=== PATIENT | male | born 1965 | race Caucasian/White ===

== ENCOUNTER 2023-09-02 08:42 | Outpatient (AMB) | payer OTHER, SELFPAY ==
[2023-09-02 08:45] VITALS: BP 120/84; PULSE 83; O2SAT 100; BMI 28.2
--- NOTE | 2023-09-02 08:45 | A.OFFPC_ITS ---
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 Intake Note: pt is here to est care and wants a PE pt's last colon screen was 2 years ago at [facility] and goes every 5 years Allergies No Known Allergies Allergy (Verified 12/18/23 10:13) Medication List - Last Reconciled 09/02/23 by Marcela Luz MD allopurinol 300 mg PO DAILY fenofibrate nanocrystallized 145 mg PO DAILY omeprazole 20 mg PO DAILY Tobacco use date assessed: 09/02/23 Dental Screening Dental Screen Date: 09/02/23 Did you have a dental visit in the last 12 months?: No Did you have a dental problem in the last 6 months where you did not have access to dental care?: No Was dental information given to patient?: Patient has dentist 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 He has been feeling well with no complaints at present time. Patient states that his last colonoscopy was done 2 years ago at [facility] and is supposed to go every 5 years. Had removal of adenomatous colon polyp in 2020. Has been noticing bright red blood mixed in with his stool over the last several days. [facility] Medical History Bleeding hemorrhoids History of adenomatous polyp of colon Chronic heartburn Celiac disease Hypertriglyceridemia Gout Surgical History History of hemorrhoidectomy (~12/05/23) Hx of colonoscopy History of eye surgery (~1977) Family History Father Diabetes mellitus Brother Liver cirrhosis Alcoholism Brother CAD in [place] artery Social History Housing: House Patient Tobacco Use Status: Former Tobacco user Quit Date: 10 years ago Tobacco use type: Cigarette Cigarette Packs Per Day: 1 e-Cigarette/Vaping Use: Never Used Second Hand Smoke Exposure: Yes service: Yes Current occupational status: employed Current occupation: [employer] Current occupational exposures/hazards: Yes Cognitive needs: No Hearing needs: No Vision needs: No Questionnaire PHQ-9 Over the last 2 weeks, how often have you been bothered by any of the following problems? 1. Little interest or pleasure in doing things: not at all 2. Feeling down, depressed, or hopeless: not at all 3. Trouble falling or staying asleep, or sleeping too much: not at all 4. Feeling tired or having little energy: not at all 5. Poor appetite or overeating: not at all 6. Feeling bad about yourself - or that you are a failure or have let yourself or your family down: not at all 7. Trouble concentrating on things, such as reading the newspaper or watching television: not at all 8. Moving or speaking so slowly that other people could have noticed. Or the opposite - being so fidgety or restless that you have been moving around a lot more than usual: not at all 9. Thoughts that you would be better off or of hurting yourself in some way: not at all Total score: 0 Depression Screening Interpretation: Negative Depression Screening Done: Yes 24708 - PHQ-9 Billing: Yes Source: Developed by Drs. Benjamin Parada, Slime Zayas, Brendan Lazo and colleagues, with an educational cande from [employer]. Thrive Questionnaire Date Thrive assessed: 09/02/23 I am a: Patient What is your living situation today?: I have a steady place to live Within the past 12 months, did the food you bought not last and you didn't have the money to get more?: Never true Within the past 12 months, did you worry whether your food would run out before you got money to buy more?: Never true Do you have trouble paying for medicines?: No Do you have trouble getting transportation to medical appointments?: No Do you have trouble paying your heating and electricity bill?: No Do you have trouble taking care of your child, family member or friend?: No Do you have trouble with day-to-day activities such as bathing, preparing meals, shopping, managing finances, etc.?: No Are you currently unemployed and looking for a job?: No Are you interested in more education?: No AUDIT C Alcohol Use Questionnaire (AUDIT-C) 1. How often do you have a drink containing alcohol?: 2-4 times a month (rum) 2. How many drinks containing alcohol do you have on a typical day when you are drinking?: 3 or 4 3. How often do you have six or more drinks on one occasion?: Monthly Total Score: 5 LUC-7 AMB Questionnaire LUC-7 Date LUC - 7 assessed: 09/02/23 Feeling nervous, anxious, or on edge: 0 = Not at all Not being able to stop or control worryin = Not at all Worrying too much about different things: 0 = Not at all Trouble relaxin = Not at all Being so restless that it is hard to sit still: 0 = Not at all Becoming easily annoyed or irritable: 0 = Not at all Feeling afraid as if something awful might happen: 0 = Not at all Total LUC-7 score (0-4 normal; 5-9 mild; 10-14 moderate; 15-21 severe): 0 Source: Developed by Drs. Benjamin Parada, Slime Zayas, Brendan Lzao and colleagues, with an educational cande from [employer]. LUC-7 Assessment Billing LUC-7 Assessment Tool: LUC-7 Assessment 06100 Review of Systems Const Denies fatigue Eyes Denies change in vision ENT Reports nasal congestion and Reports post nasal drip Card Reports no additional complaints Resp Denies chest congestion, Reports cough and Denies wheezing GI Denies abdominal pain, Reports hematochezia (due to hemorrhoids), Denies change in bowel habits, Denies heartburn (Controlled with famotidine) and Denies nausea Reports no additional complaints Musc Reports no additional complaints Skin/Breast Reports dry skin and Denies rash Neuro Reports no additional complaints Psych Reports no additional complaints Endo Denies fatigue and Reports polyuria Leon/Lymph Denies easy bleeding and Denies easy bruising Aller/Immun Denies wheezing Physical exam (Primary Care) Vital Signs: Last Vital Signs Pulse 83 09/02/23 08:45 BP 120/84 09/02/23 08:45 Pulse Ox 100 09/02/23 08:45 Oxygen Delivery Method Room Air 09/02/23 08:45 BMI result Body Mass Index 28.2 Tobacco/Smoking Status: Tobacco use Status Tobacco use date assessed 09/02/23 09/02/23 08:58 Patient Tobacco Use Status Former Tobacco user 09/02/23 08:58 Tobacco use type Cigarette 09/02/23 08:58 e-Cigarette/Vaping Use Never Used 09/02/23 08:58 PHQ-9: PHQ-9 Score PHQ-9: Total score 0 09/02/23 09:36 Depression Screening Interpretation: Negative Thrive Assessment: Date of Thrive Assessment Date Thrive assessed 09/02/23 09/02/23 09:04 Const General: no acute distress and alert Orientation/consciousness: patient oriented x3 HENMT Head: Yes normocephalic Ears: external ears normal, TM's normal bilaterally and EAC's normal General nose exam: Normal external nose present and No nasal discharge present Face and sinus: Yes face symmetric Mouth: Normal oral and palatal mucosa present, oropharynx normal and moist mucous membranes Eyes General: appearance normal, both eyes and all related structures Eyelids: Yes eyelids normal Conjunctivae: conjunctivae normal Sclerae: sclerae normal Pupils: Equal, round and reactive pupils present EOM: EOMs intact bilaterally Neck Neck: Yes full ROM, Yes no lymphadenopathy and Yes supple Thyroid: Thyroid normal Resp Effort & Inspection: normal respiratory effort and able to speak in complete sentences Auscultation: clear to auscultation bilaterally Cardio Rate: regular rate Rhythm: regular rhythm Heart sounds: S1 normal heart sound present and S2 normal heart sound present GI Palpation (GI): Soft to palpation, nontender, no guarding and no masses Auscultation: normal bowel sounds Rectal Exam - Male: Yes hemorrhoids (External hemorrhoids noted on left) General: Yes no CVA tenderness Male General Exam: No hernia Scrotum: no inguinal hernias Testes: no testicular mass Back/Spine/Pelvis Back: no CVA tenderness and No back tenderness Skin General skin exam: no rashes or lesions noted Neuro General: patient oriented x3, gait normal, moves all extremities, Normal light touch and pain sensation, no focal motor deficits and CN's II-XI intact jd aterally Cranial nerves: Yes Equal, round and reactive pupils present Cognition (Neuro): normal cognition Gait exam (Neuro): Normal gait present Motor exam (neuro): 5/5 motor strength present throughout Extrem General: Yes normal to inspection, Yes full ROM, Yes no joint enlargement, Yes no pedal edema and Yes normal gait Psych Appearance: grossly normal and well kempt Mental Status: mental status grossly normal Speech and movement: Normal speech and movement present Affect: normal affect Office Procedures Flu Questionnaire Does the patient have a severe egg allergy?: No Does the patient have severe life threatening allergies?: No Does the patient have a fever or illness today?: No Has the patient ever had Guillain-[place] Syndrome?: No Has the patient ever had any past reaction to a flu shot?: No Immunizations flu vacc [id number] 6mos up(PF) 60 mcg(15 mcgx4)/0.5 mL IM syringe Performing Provider: Marcela Luz MD Performing Location: [facility] Administered by: Henny Saenz CMA on 09/02/23 09:47 Dose Route Admin Location Dispensed Lot Number Expiration Date 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 Recommended dental visit every 6 months and regular eye exams, at least every 2 years. Take adequate calcium in diet and vitamin-D 3 at 2000 IU per cap once a day, in addition to weight-bearing exercises to help maintain good muscle tone and weight control. Instructed to do self-testicular exam to check for any mass. Flu vaccine given today, up-to-date with Tdap, does not want to get a COVID booster (2) Chronic heartburn: Code(s): R12 - Heartburn Plan: Currently on famotidine 40 mg daily, advised avoidance of triggers for heartburn (3) Celiac disease: Code(s): K90.0 - Celiac disease Plan: Patient advised to follow a gluten free diet (4) Hypertriglyceridemia: Code(s): E78.1 - Pure hyperglyceridemia Plan: Fasting lipid panel ordered today currently on fenofibrate 145 mg (5) Gout: Comment: in right big toe Code(s): M10.9 - Gout, unspecified Plan: Ordered uric acid level, refill sent for allopurinol 300 mg taken once a day, recommended adherence to a low purine diet, cut back on his alcohol intake (6) Prostate cancer screening: Code(s): Z12.5 - Encounter for screening for malignant neoplasm of prostate Plan: Ordered total PSA (7) Bleeding hemorrhoids: Code(s): K64.9 - Unspecified hemorrhoids Plan: General surgery consult ordered Orders: Orders Comprehensive [place]. Panel Fast 09/02/23 Z86.010 - Personal history of colonic polyps, R12 - Heartburn, K90.0 - Celiac disease, E78.1 - Pure hyperglyceridemia, M10.9 - Gout, unspecified, Z00.01 - Encounter for general adult medical examination with abnormal findings, Z12.5 - Encounter for screening for malignant neoplasm of prostate Vitamin D 25-OH Total 09/02/23 Z86.010 - Personal history of colonic polyps, R12 - Heartburn, K90.0 - Celiac disease, E78.1 - Pure hyperglyceridemia, M10.9 - Gout, unspecified, Z00.01 - Encounter for general adult medical examination with abnormal findings, Z12.5 - Encounter for screening for malignant neoplasm of prostate PSA,Total (Free>4and<10) 09/02/23 Z86.010 - Personal history of colonic polyps, R12 - Heartburn, K90.0 - Celiac disease, E78.1 - Pure hyperglyceridemia, M10.9 - Gout, unspecified, Z00.01 - Encounter for general adult medical examination with abnormal findings, Z12.5 - Encounter for screening for malignant neoplasm of prostate Influenza 9005-1811 Immunization 09/02/23 Z23 - Encounter for immunization, Z86.010 - Personal history of colonic polyps, R12 - Heartburn, K90.0 - Celiac disease, E78.1 - Pure hyperglyceridemia, M10.9 - Gout, unspecified, Z00.01 - Encounter for general adult medical examination with abnormal findings, Z12.5 - Encounter for screening for malignant neoplasm of prostate Lipid Panel 09/02/23 Z86.010 - Personal history of colonic polyps, R12 - Heartburn, K90.0 - Celiac disease, E78.1 - Pure hyperglyceridemia, M10.9 - Gout, unspecified, Z00.01 - Encounter for general adult medical examination with abnormal findings, Z12.5 - Encounter for screening for malignant neoplasm of prostate Complete Blood Count Auto Diff 09/02/23 Z86.010 - Personal history of colonic polyps, R12 - Heartburn, K90.0 - Celiac disease, E78.1 - Pure hyperglyceridemia, M10.9 - Gout, unspecified, Z00.01 - Encounter for general adult medical examination with abnormal findings, Z12.5 - Encounter for screening for malignant neoplasm of prostate Uric Acid 09/02/23 Z86.010 - Personal history of colonic polyps, R12 - Heartburn, K90.0 - Celiac disease, E78.1 - Pure hyperglyceridemia, M10.9 - Gout, unspecified, Z00.01 - Encounter for general adult medical examination with abnormal findings, Z12.5 - Encounter for screening for malignant neoplasm of prostate Referrals General Surgery Referral K64.9 - Unspecified hemorrhoids Medications: New cetirizine 10 mg PO BEDTIME PRN 30 tabs 3RF allergy symptoms fluticasone propionate 50 mcg/actuation (Allergy Relief (fluticasone)) administer into each nostril 1 spray intranasal BID PRN 16 grams 1RF allergy symptoms famotidine 40 mg PO DAILY 30 tabs 5RF allopurinol 300 mg PO DAILY 30 tabs 5RF Coding Level of Care Code New Pt Prev Care 40-64y(37213) Diagnoses Annual visit for general adult medical examination with abnormal findings Z00.01 Chronic heartburn R12 Celiac disease K90.0 Hypertriglyceridemia E78.1 Gout M10.9 Prostate cancer screening Z12.5 Bleeding hemorrhoids K64.9 Additional Codes LUC-7 Assessment Billing - LUC-7 Assessment Tool: LUC-7 Assessment 46675 ([id number])
== END 2023-09-02 09:55 | disposition home or self-care (01) ==
PROVIDERS: PCP Internal Medicine; Visit Provider Internal Medicine
DX: Z00.00 Encounter for general adult medical examination without abnormal findings (principal); R12 Heartburn; K90.0 Celiac disease; E78.1 Pure hyperglyceridemia; M10.9 Gout, unspecified; Z12.5 Encounter for screening for malignant neoplasm of prostate; K64.9 Unspecified hemorrhoids
CPT/HCPCS: 90471; 90686; 99386

== ENCOUNTER 2023-09-02 09:53 | Outpatient (REF) | payer OTHER, SELFPAY ==
[2023-09-02 13:28] LABS: MANUAL DIFF FLAG NO
[2023-09-02 13:36] LABS: Basophils Percent Auto 0.5 % (0-2); Eosinophils Absolute Auto 0.1 X10*3/uL (0.0-0.4); Hematocrit 40.4 % (42.0-52.0); Hemoglobin 13.7 g/dl (14.0-18.0); Imm Gran Abs Auto 0.02 X10*3/uL (0.00-0.03); Imm Gran Pct Auto 0.3 % (0.0-0.4); Lymphocytes Percent Auto 13.2 % (20-40); Mean Corpuscular HGB Conc 33.9 g/dl (31.0-36.0); Mean Corpuscular Hemoglobin 31.1 pg (27.0-33.0); Mean Corpuscular Volume 91.6 fL (80.0-98.0); Mean Platelet Volume 10.2 fL (9.4-12.4); Monocytes Absolute Auto 0.6 X10*3/uL (0.1-1.2); Monocytes Percent Auto 7.4 % (2-11); Neutrophils Absolute Auto 6.1 x10*3/uL (2.0-8.3); Neutrophils Percent Auto 77.6 % (45-73); Platelet Count 242 X10*3/uL (160-400); Red Blood Count 4.41 X10*6/uL (4.60-5.80); Red Cell Distribution Width 12.3 % (11.0-16.0); White Blood Count 7.9 X10*3/uL (4.8-10.8)
[2023-09-02 13:58] LABS: Alanine Aminotransferase 23 U/L (0-40); Albumin Level 4.6 g/dL (3.5-5.0); Alkaline Phosphatase 55 U/L (39-117); Anion Gap 14 (12-20); Aspartate Amino Transferase 24 U/L (5-37); Bilirubin Total 0.6 mg/dL (0.0-1.0); Blood Urea Nitrogen 16 mg/dL (9-16); Calcium 10.2 mg/dL (8.4-10.2); Carbon Dioxide 25 mmol/L (22-29); Chloride 106 mmol/L (96-108); Cholesterol 170 mg/dL (<200); Estimated Glomerular Filt Rate 59; Glucose Fasting 104 mg/dL (60-99); HDL Cholesterol 33 mg/dL (>40); LDL Cholesterol Calculated 118 mg/dL (<100); Potassium 4.2 mmol/L (3.3-5.1); Sodium 141 mmol/L (135-145); Total Protein 7.3 g/dL (6.5-8.0); Triglycerides 95 mg/dL (<150); Uric Acid 4.3 mg/dL (3.4-7.0)
[2023-09-02 14:10] LABS: PSA,Total (Free>4and<10) 0.98 ng/mL (0.00-4.00)
[2023-09-02 14:14] LABS: Vitamin D 25-OH Total 30.3 ng/mL (>30)
== END 2023-09-02 09:54 | disposition home or self-care (01) ==
LOC: HO.HMGCLDS 09:53
PROVIDERS: PCP Internal Medicine; Visit Provider Internal Medicine
DX: Z00.01 Encounter for general adult medical examination with abnormal findings (principal); Z12.5 Encounter for screening for malignant neoplasm of prostate; M10.9 Gout, unspecified; R12 Heartburn; K90.0 Celiac disease; E78.1 Pure hyperglyceridemia; Z86.010 Personal history of colon polyps
CPT/HCPCS: 36415; 80053; 80061; 82306; 84153; 84550; 85025

== ENCOUNTER 2023-09-15 15:00 | Outpatient (AMB) | payer OTHER, SELFPAY ==
--- NOTE | 2023-09-15 15:02 | A.OFFVIS_ITS ---
Intake Vital Signs 09/15/23 15:12 Height 5 ft Weight 146 lb BMI 28.5 BP 133/76 Blood Pressure Location Rt brachial Position Sitting Pulse 84 Intake Visit Reasons: Unspecified hemorrhoids Intake Note: This patient presents for an assessment for unspecified hemorrhoids. Patient c/o; reports no rectal bleeding at this time, reports occasional constipation, reports regular bowel movements. 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 He says that for about 4-5 years now, he has been noticing frequent bleeding with bowel movements. He also says that hemorrhoids which swell up periodically. He says that this seems to have been worsening the past year. He says that these hemorrhoids have been bothering him more and he wants to proceed with hemorrhoidectomy. He has had a colonoscopy before and says he is up-to-date with this. [facility] Medical History (Updated 09/02/23 @ 09:50 by Marcela Luz MD) Bleeding hemorrhoids History of adenomatous polyp of colon Chronic heartburn Celiac disease Hypertriglyceridemia Gout Surgical History (Updated 09/15/23 @ 15:11 by EUGENIA Conroy) History of eye surgery (~1977) Family History (Updated 09/15/23 @ 15:11 by EUGENIA Conroy) Father Diabetes mellitus Brother Liver cirrhosis Alcoholism Brother CAD in [place] artery Social History Housing: House Patient Tobacco Use Status: Former Tobacco user Quit Date: quit 10 years ago Tobacco use type: Cigarette Cigarette Packs Per Day: 1 e-Cigarette/Vaping Use: Never Used Second Hand Smoke Exposure: Yes service: Yes Current occupational status: employed Current occupation: [employer] Current occupational exposures/hazards: Yes Cognitive needs: No Hearing needs: No Vision needs: No Review of Systems Const Denies chills and Denies fever(s) Card Denies chest pain, Denies dyspnea and Denies dyspnea on exertion Resp Denies cough, Denies dyspnea and Denies dyspnea on exertion GI Denies hematochezia and Denies change in bowel habits Denies hematuria and Denies difficulty urinating Musc Denies back pain and Denies limited range of motion Neuro Denies focal weakness and Denies convulsions Psych Denies depression and Denies mood swings Physical Exam Vital Signs: Last Vital Signs Pulse 84 09/15/23 15:12 BP 133/76 09/15/23 15:12 BMI result Body Mass Index 28.5 Const General: comfortable and no acute distress Orientation/consciousness: patient oriented x3 Neck Neck: Yes no lymphadenopathy Resp Auscultation: clear to auscultation bilaterally Cardio Rhythm: regular rhythm GI Other: Rectal exam shows large external hemorrhoid column on the left, anoscopy as described Palpation (GI): Soft to palpation, nontender and no guarding Neuro General: patient oriented x3 Office Procedures Anoscopy He was in cheryl-knife position. The anoscope was gently inserted. A full examination of the anal canal was done. He had a fairly large hemorrhoidal column, mix of internal and externalon the left. This seemed to bleed easily. There were no other lesions. There was no induration on digital exam. He had good sphincter tone. [id number] Assessment & Plan Assessment & Plan (1) Bleeding hemorrhoids: Code(s): K64.9 - Unspecified hemorrhoids Plan: I reviewed with him the technique of hemorrhoidectomy. I explained the risks including but not limited to bleeding, infections, postop pain, poor healing, as well as the benefits and alternatives. I reviewed with him what to expect postoperatively especially with regards to care. He says that the bleeding happens quite frequently and he wants to proceed with hemorrhoidectomy. Coding Level of Care Code New Pt Level 3 (96397) Diagnoses Bleeding hemorrhoids K64.9 CPT Codes Details - CPT: 29811-Pslhbtnt ([id number])
[2023-09-15 15:12] VITALS: BP 133/76; PULSE 84; BMI 28.5
== END 2023-09-15 15:27 | disposition home or self-care (01) ==
PROVIDERS: PCP Internal Medicine; Visit Provider Surgery
DX: K64.9 Unspecified hemorrhoids (principal)
CPT/HCPCS: 46600; 99203

== ENCOUNTER → 2023-09-15 15:00 | Outpatient (BNVA) | payer OTHER, SELFPAY | PROVIDERS: PCP Internal Medicine; Visit Provider Surgery | DX: K64.9 Unspecified hemorrhoids (principal) | CPT/HCPCS: 46600 ==

== ENCOUNTER 2023-12-05 06:13 | Day surgery (SDC) | payer OTHER, SELFPAY ==
[2023-12-03 08:49] VITALS: BMI 28.5
--- NOTE | 2023-12-04 10:41 | P.CONAN_ITS ---
Documented by User: Cynthia Petty NP 12/04/23 10:42 HPI - Anesthesia Eval Consult details Narrative: 58yo M for Exam under anesthesia,Hemorrhoidectomy PMFSH Active Problems Active Problems: All Active Problems (Updated 09/02/23 @ 09:50 by Marcela Luz MD) Bleeding hemorrhoids (Acute) History of adenomatous polyp of colon (Acute) Chronic heartburn (Acute) Celiac disease (Acute) Hypertriglyceridemia (Acute) Gout (Acute) Past Medical History Medical History Bleeding hemorrhoids History of adenomatous polyp of colon Chronic heartburn Celiac disease Hypertriglyceridemia Gout Family History Family History Father Diabetes mellitus Brother Liver cirrhosis Alcoholism Brother CAD in [place] artery Surgical History Surgical History Hx of colonoscopy History of eye surgery (~1977) Social History Social History Housing: House Patient Tobacco Use Status: Former Tobacco user Quit Date: 10 years ago Tobacco use type: Cigarette Cigarette Packs Per Day: 1 e-Cigarette/Vaping Use: Never Used Second Hand Smoke Exposure: Yes Use of substances other than those prescribed or required for medical reasons: Yes Substance Use Frequency: Occasionally Are you DNR?: No Advance Directives: No Advance Directives Information Provided: Yes service: Yes Current occupational status: employed Current occupation: [employer] Current occupational exposures/hazards: Yes Cognitive needs: No Hearing needs: No Vision needs: No Meds Allergies Allergy/AdvReac Type Severity Reaction Status Date / Time No Known Allergies Allergy Verified 12/05/23 06:39 Home Medications Medication Instructions Recorded Confirmed Last Taken Type fenofibrate nanocrystallized 145 145 mg PO DAILY 09/02/23 12/05/23 Unknown History mg tablet Exam Height,Weight and Vital Signs: Height 5 ft Weight 66.224 kg Pertinent Lab Results Pertinent Lab Results: Laboratory Tests 09/02/23 10:00 WBC 7.9 Hgb 13.7 L Hct 40.4 L Plt Count 242 Sodium 141 Potassium 4.2 Chloride 106 Carbon Dioxide 25 BUN 16 Creatinine 1.25 Assessment and Plan Assessment Anesthesia Assessment: Chart Reviewed Documented by User: Lilia Alvarado MD 12/05/23 07:33 PMFSH Past Medical History Medical History Bleeding hemorrhoids History of adenomatous polyp of colon Chronic heartburn Celiac disease Hypertriglyceridemia Gout Family History Family History Father Diabetes mellitus Brother Liver cirrhosis Alcoholism Brother CAD in [place] artery Family history of problems with anesthesia: No Surgical History Surgical History Hx of colonoscopy History of eye surgery (~1977) History of Problems with Anesthesia: No Social History Social History Housing: House Patient Tobacco Use Status: Former Tobacco user Quit Date: 10 years ago Tobacco use type: Cigarette Cigarette Packs Per Day: 1 e-Cigarette/Vaping Use: Never Used Second Hand Smoke Exposure: Yes Use of substances other than those prescribed or required for medical reasons: Yes Substance Use Frequency: Occasionally Are you DNR?: No Advance Directives: No Advance Directives Information Provided: Yes service: Yes Current occupational status: employed Current occupation: [employer] Current occupational exposures/hazards: Yes Cognitive needs: No Hearing needs: No Vision needs: No Meds Allergies Allergy/AdvReac Type Severity Reaction Status Date / Time No Known Allergies Allergy Verified 12/05/23 06:39 Home Medications Medication Instructions Recorded Confirmed Last Taken Type fenofibrate nanocrystallized 145 145 mg PO DAILY 09/02/23 12/05/23 Unknown History mg tablet Exam Airway Mallampati Class: II TM Dist: >3cm Neck ROM: Full Loose/Missing/Broken Teeth: Yes and Upper Heart: rrr Lungs: cta Assessment and Plan Final Anesthetic Review Family History of Problems with Anesthesia: No History of Problems with Anesthesia: No NPO: Yes ASA Class: II Final Preanesthetic Review: No Changes in Pt Med Stat, Meds/Allgs Chart Reviewed, Consent Obtained/Reviewed and Anes Risks/Benef Reviewed Patient Risk: Intermediate Procedure Risk: Intermediate Anesthetic Plan Anesthetic Plan: GA Disposition: Standard PACU
[2023-12-05 06:15] VITALS: BP 140/99; PULSE 76; RESP 16; TEMP 36.5; O2SAT 98; BMI 28.2
[2023-12-05] MEDS: Lactated Ringers 1,000 ML 100 ML IVCONT (06:40)
--- NOTE | 2023-12-05 07:19 | MHC.SHP ---
Pre-Procedural Eval Section A - 24 Hr Update-Section A only Date of Service: 12/05/23 Section B - Complete if H&P > 30 days Chief Complaint: Unspecified hemorrhoids Details of Present Illness: has had a long hx of bleeding hemorrhoids Relevant Social History: None Present Medications: see Short Stay Collaborative assessment Medical History: Significant History (gout, celiac ds, hyperlipidemia) History of Previous Operations: No relevant previous surgery Allergies: Allergies Allergy/AdvReac Type Severity Reaction Status Date / Time No Known Allergies Allergy Verified 12/05/23 06:39 Review of Systems Sugical H&P ROS: Negative: Constitution, Cardiovascular, Respiratory, Neurological, Psychiatric, Hem-Onc, Allergic/Immunologic, Gastrointestinal, Genitourinary, Musculoskeletal, Integumentary, Endocrine and Eyes/Ears/Nose/Throat Exam Surgical H&P Exam: Normal: HEENT, Normal: Heart, Normal: Lungs, Normal: Extremities, Normal: Abdomen, Normal: Skin and Normal: Neurological Exam Comment: mixed hemorrhoids left Plan Diagnosis/Plan: Unchanged I have reviewed the history and physical and performed a pertinent physical examination on my patient. No changes have occurred unless specified. Time Spent With Patient Time: Total time managing care of this patient today ____ minutes.
--- NOTE | 2023-12-05 08:24 | P.OP_ITS ---
Operative Note Operative Note Date of Service: 12/05/23 Narrative: Preop diagnosis: Bleeding hemorrhoids Postop diagnosis: Bleeding hemorrhoids, internal and external Procedure: Exam under anesthesia hemorrhoidectomy x2 columns Surgeon: Bradley Cowan Seismometer Operator: [place] Colón student The patient is a 58-year-old male who is here for hemorrhoidectomy. He has had chronic complaints of frequent bleeding with this hemorrhoids and wanted to proceed with hemorrhoidectomy. He understood the planned procedure as well as the risks, benefits, and alternatives. He was brought to the operating room. He was placed in prone cheryl-knife position under general anesthesia via endotracheal tube. The buttocks were retracted with wide tape laterally. The perianal area was prepped and draped in the usual sterile fashion. A surgical time-out was done. The patient received Cefotan 2 g IV preoperatively Examination of the anal orifice revealed a large external hemorrhoid on the left side. There was a smaller hemorrhoidal column on the right. I inserted the Fabian Stout retractor. I examined the anal canal circumferentially. The above hemorrhoidal columns were seen as a mix of internal external. There were no other lesions. There was no bleeding. I applied a Schafer grasper at the hemorrhoidal column on the left to retract this out of the field. I made a figure of 8 stitch at its pedicle with a chromic 3-0. I made an incision around this hemorrhoidal column through the perianal skin using blade 15. I excised this hemorrhoidal column above the plane of the sphincters with scissors this incision. I closed this incision with a running chromic 3-0 stitch. Additional hemostatic sutures were placed . The same procedure was duplicated on the hemorrhoidal column the right side. The hemorrhoidal column was retracted with a Schafer grasper. I made a f [id number] stitch as the pedicle. I made an incision around this and excised this above the plane of sphincters. I closed this incision with a running chromic 3-0 stitch. Once hemostasis was confirmed, I infiltrated the perianal area with Marcaine 0.5% for postop analgesia. The procedure was then completed. The patient tolerated procedure well. There were no immediate complications. I nitial and final counts of sponges and instruments were correct. Estimated blood loss about 20 cc. The patient was extubated without difficulty and transferred to the recovery room with stable vital signs.
[2023-12-05 08:40] VITALS: BP 119/67; PULSE 75; RESP 16; TEMP 36.2; O2SAT 100
[2023-12-05 08:45] VITALS: BP 157/84; PULSE 83; RESP 16; O2SAT 100
[2023-12-05 08:50] VITALS: BP 155/80; PULSE 79; RESP 18; O2SAT 100
[2023-12-05 08:55] VITALS: BP 151/88; PULSE 79; RESP 20; TEMP 36.2; O2SAT 98
[2023-12-05] MEDS: oxyCODONE HCl Immed Release 5 MG TABLET PO (08:55)
[2023-12-05 09:10] VITALS: BP 160/97; PULSE 79; RESP 16; TEMP 36.2; O2SAT 98
== END 2023-12-05 09:46 | disposition home or self-care (01) ==
PROVIDERS: PCP Internal Medicine; Visit Provider Surgery
PROC: (CPT 46260; principal; 2023-12-05 07:30)
DX: K64.8 Other hemorrhoids (principal); K64.4 Residual hemorrhoidal skin tags; M10.071 Idiopathic gout, right ankle and foot; E78.1 Pure hyperglyceridemia; R12 Heartburn; Z79.899 Other long term (current) drug therapy; Z86.010 Personal history of colon polyps; K90.0 Celiac disease; Z87.891 Personal history of nicotine dependence
CPT/HCPCS: 46260; 88304; J1100; J1170; J2250; J2405; J2704; J2795; J3010

== ENCOUNTER → 2023-12-05 06:13 | Outpatient (BNV) | payer OTHER, SELFPAY | PROVIDERS: PCP Internal Medicine; Visit Provider Surgery | DX: K64.8 Other hemorrhoids (principal) | CPT/HCPCS: 46260 ==

== ENCOUNTER 2023-12-18 10:08 | Outpatient (AMB) | payer OTHER, SELFPAY ==
--- NOTE | 2023-12-18 10:08 | A.OFFVIS_ITS ---
Intake Intake Visit Reasons: S/P hemorrhoidectomy Intake Note: This patient presents for a post-op assessment status post hemorrhoidectomy. Pt c/o; reports no complaints at this time. Orthopedic Tech Required: No Accompanied by: Spouse Allergies No Known Allergies Allergy (Verified 12/18/23 10:13) [facility] Medical History Bleeding hemorrhoids History of adenomatous polyp of colon Chronic heartburn Celiac disease Hypertriglyceridemia Gout Surgical History (Updated 12/16/23 @ 10:39 by Marycruz Zarate [facility]) History of hemorrhoidectomy (~12/05/23) Hx of colonoscopy History of eye surgery (~1977) Family History Father Diabetes mellitus Brother Liver cirrhosis Alcoholism Brother CAD in [place] artery Social History Housing: House Patient Tobacco Use Status: Former Tobacco user Quit Date: 10 years ago Tobacco use type: Cigarette Cigarette Packs Per Day: 1 e-Cigarette/Vaping Use: Never Used Second Hand Smoke Exposure: Yes service: Yes Current occupational status: employed Current occupation: [employer] Current occupational exposures/hazards: Yes Cognitive needs: No Hearing needs: No Vision needs: No Assessment & Plan Assessment & Plan (1) Bleeding hemorrhoids: Code(s): K64.9 - Unspecified hemorrhoids Plan: Status post hemorrhoidectomy. He is doing well postoperatively. His incisions are healing well His path report shows a hemorrhoidal tissue with a minute area of condyloma acuminatum on the right side I explained to him the benign nature of this pathology I advised him to call the office if he has any concerns down the line or if he wants to be re-evaluated. Coding Level of Care Code Global (88564) Diagnoses Bleeding hemorrhoids K64.9
== END 2023-12-18 10:19 | disposition home or self-care (01) ==
PROVIDERS: PCP Internal Medicine; Visit Provider Surgery
DX: K64.9 Unspecified hemorrhoids (principal)
CPT/HCPCS: 99024

== ENCOUNTER → 2023-12-18 10:08 | Outpatient (BNVA) | payer OTHER, SELFPAY | PROVIDERS: PCP Internal Medicine; Visit Provider Surgery ==

== ENCOUNTER 2024-03-19 06:41 | Outpatient (REF) | payer OTHER, SELFPAY ==
[2024-03-19 10:26] LABS: MANUAL DIFF FLAG NO
[2024-03-19 10:36] LABS: Basophils Absolute Auto 0.1 X10*3/uL (0.0-0.2); Basophils Percent Auto 0.8 % (0-2); Eosinophils Absolute Auto 0.1 X10*3/uL (0.0-0.4); Imm Gran Abs Auto 0.01 X10*3/uL (0.00-0.03); Imm Gran Pct Auto 0.2 % (0.0-0.4); Lymphocytes Absolute Auto 1.1 X10*3/uL (1.2-4.9); Lymphocytes Percent Auto 17.1 % (20-40); Mean Corpuscular HGB Conc 34.9 g/dl (31.0-36.0); Mean Corpuscular Hemoglobin 32.7 pg (27.0-33.0); Mean Corpuscular Volume 93.7 fL (80.0-98.0); Mean Platelet Volume 10.6 fL (9.4-12.4); Monocytes Absolute Auto 0.5 X10*3/uL (0.1-1.2); Monocytes Percent Auto 8.2 % (2-11); Neutrophils Absolute Auto 4.5 x10*3/uL (2.0-8.3); Neutrophils Percent Auto 72.7 % (45-73); Platelet Count 189 X10*3/uL (160-400); Red Blood Count 4.59 X10*6/uL (4.60-5.80); Red Cell Distribution Width 12.9 % (11.0-16.0); White Blood Count 6.2 X10*3/uL (4.8-10.8)
[2024-03-19 11:23] LABS: Alanine Aminotransferase 25 U/L (0-40); Anion Gap 13 (12-20); Aspartate Amino Transferase 29 U/L (5-37); Blood Urea Nitrogen 17 mg/dL (9-16); Calcium 9.3 mg/dL (8.4-10.2); Carbon Dioxide 22 mmol/L (22-29); Chloride 107 mmol/L (96-108); Cholesterol 183 mg/dL (<200); Estimated Glomerular Filt Rate > 60; Glucose Fasting 106 mg/dL (60-99); HDL Cholesterol 42 mg/dL (>40); LDL Cholesterol Calculated 105 mg/dL (<100); Sodium 138 mmol/L (135-145); Triglycerides 182 mg/dL (<150)
== END 2024-03-19 06:42 | disposition home or self-care (01) ==
LOC: HO.HMGCLDS 06:41
PROVIDERS: PCP Internal Medicine; Visit Provider Internal Medicine
DX: R12 Heartburn (principal); K90.0 Celiac disease; E78.1 Pure hyperglyceridemia; M10.9 Gout, unspecified; Z86.010 Personal history of colon polyps; K64.9 Unspecified hemorrhoids
CPT/HCPCS: 36415; 80048; 80061; 84450; 84460; 84550; 85025

== ENCOUNTER 2024-03-26 07:05 | Outpatient (AMB) | payer OTHER, SELFPAY ==
--- NOTE | 2024-03-26 08:12 | A.OFFPC_ITS ---
Intake Visit Reasons: lab f/u Andriod [phone] Intake Note: Pt is having a TH visit to f/u labs Allergies No Known Allergies Allergy (Verified 03/26/24 08:16) Medication List - Last Reconciled 03/26/24 by Marcela Luz MD allopurinol 300 mg PO DAILY cetirizine 10 mg PO BEDTIME PRN famotidine 40 mg PO DAILY ibuprofen 600 mg PO Q6H PRN Tobacco use date assessed: 03/26/24 Dental Screening Dental Screen Date: 03/26/24 Did you have a dental visit in the last 12 months?: No Was dental information given to patient?: Patient declined HPI lab f/u Andriod [phone] HPI Details 59-year-old male with history of gout, c urrently asymptomatic, has chronic heartburn, controlled on famotidine, hypertriglyceridemia, and impaired fasting glucose, here today for follow-up compliant with taking his medications, but states that he has not really been paying attention much to his diet and has been mostly sedentary this past few months. Has been feeling well with no complaints at present time. [facility] Medical History (Updated 03/28/24 @ 02:13 by Marcela Luz MD) Impaired fasting glucose Bleeding hemorrhoids History of adenomatous polyp of colon Chronic heartburn Celiac disease Hypertriglyceridemia Gout Surgical History History of hemorrhoidectomy (~12/05/23) Hx of colonoscopy History of eye surgery (~1977) Family History Father Diabetes mellitus Brother Liver cirrhosis Alcoholism Brother CAD in [place] artery Social History Housing: House Patient Tobacco Use Status: Former Tobacco user Quit Date: 10 years ago Tobacco use type: Cigarette Cigarette Packs Per Day: 1 e-Cigarette/Vaping Use: Never Used Second Hand Smoke Exposure: Yes service: Yes Current occupational status: employed Current occupation: [employer] Current occupational exposures/hazards: Yes Cognitive needs: No Hearing needs: No Vision needs: No Questionnaire PHQ-9 Over the last 2 weeks, how often have you been bothered by any of the following problems? 1. Little interest or pleasure in doing things: not at all 2. Feeling down, depressed, or hopeless: not at all 3. Trouble falling or staying asleep, or sleeping too much: not at all 4. Feeling tired or having little energy: not at all 5. Poor appetite or overeating: not at all 6. Feeling bad about yourself - or that you are a failure or have let yourself or your family down: not at all 7. Trouble concentrating on things, such as reading the newspaper or watching television: not at all 8. Moving or speaking so slowly that other people could have noticed. Or the o pposite - being so fidgety or restless that you have been moving around a lot more than usual: not at all 9. Thoughts that you would be better off or of hurting yourself in some way: not at all Total score: 0 Depression Screening Interpretation: Negative Depression Screening Done: Yes 33118 - PHQ-9 Billing: Yes Source: Developed by Drs. Benjamin Parada, Slime Zayas, Brendan Lazo and colleagues, with an educational cande from [employer]. Thrive Questionnaire Date Thrive assessed: 03/26/24 I am a: Patient What is your living situation today?: I have a steady place to live Within the past 12 months, did the food you bought not last and you didn't have the money to get more?: Never true Within the past 12 months, did you worry whether your food would run out before you got money to buy more?: Never true Do you have trouble paying for medicines?: No Do you have trouble getting transportation to medical appointments?: No Do you have trouble paying your heating and electricity bill?: No Do you have trouble taking care of your child, family member or friend?: No Do you have trouble with day-to-day activities such as bathing, preparing meals, shopping, managing finances, etc.?: No Are you currently unemployed and looking for a job?: No Are you interested in more education?: No THRIVE Score: 0 AUDIT C Alcohol Use Questionnaire (AUDIT-C) 1. How often do you have a drink containing alcohol?: Monthly or less 2. How many drinks containing alcohol do you have on a typical day when you are drinking?: 1 or 2 3. How often do you have six or more drinks on one occasion?: Never Total Score: 1 LUC-7 AMB Questionnaire LUC-7 Date LUC - 7 assessed: 03/26/24 Feeling nervous, anxious, or on edge: 0 = Not at all Not being able to stop or control worryin = Not at all Worrying too much about different things: 0 = Not at all Trouble relaxin = Not at all Being so restless that it is hard to sit still: 0 = Not at all Becoming easily annoyed or irritable: 0 = Not at all Feeling afraid as if something awful might happen: 0 = Not at all Total LUC-7 score (0-4 normal; 5-9 mild; 10-14 moderate; 15-21 severe): 0 Source: Developed by Drs. Benjamin Parada, Slime Zayas, Brendan Lazo and colleagues, with an educational cande from [employer]. LUC-7 Assessment Billing LUC-7 Assessment Tool: LUC-7 Assessment 51659 Review of Systems Const Denies chills and Denies fever(s) ENT Reports no additional complaints Card Denies chest pain, Denies dyspnea and Denies dyspnea on exertion Resp Denies cough, Denies dyspnea and Denies dyspnea on exertion GI Denies change in bowel habits Denies hematuria and Denies difficulty urinating Musc Reports no additional complaints Neuro Reports no additional complaints Endo Reports no additional complaints Physical exam (Primary Care) Tobacco/Smoking Status: Tobacco use Status Tobacco use date assessed 03/26/24 03/26/24 08:13 Patient Tobacco Use Status Former Tobacco user 03/26/24 08:13 Tobacco use type Cigarette 03/26/24 08:13 e-Cigarette/Vaping Use Never Used 03/26/24 08:13 PHQ-9: PHQ-9 Score PHQ-9: Total score 0 03/26/24 08:15 Depression Screening Interpretation: Negative Thrive Assessment: Date of Thrive Assessment Date Thrive assessed 03/26/24 03/26/24 08:13 Telehealth Telehealth Telehealth [facility]: [facility] Location of provider rendering services: practice address Location of patient: address on file Patient Identification confirmed using: Name, : Yes Telehealth method: video Patient verbally consented to treatment: Yes Patient verbally consented to billing insurance company: Yes Patient informed of any privacy concerns related to visit: Yes Minutes spent on Phone/Video with Pt.: 15 Results Reviewed Results Reviewed: Name: Arnoldo Mayfield Age/Sex: 59/M : 1965 Unit#: [id number] Attend Dr: Marcela Luz MD Re03/19/24 Status: DEP REF Location: [facility] Disch: SPEC : [id number] CRIS: 03/19/24 STATUS: COMP REQ : [id number] RECD: 03/19/24-[address]: Marcela Luz MD COMP: 03/19/24 ENTERED: 03/19/24 [facility] DR: ORDERED: CBC Auto Diff Test Result Flag Reference WBC 6.2 4.8-10.8 X10*3/uL RBC 4.59 L 4.60-5.80 X10*6/uL HGB 15.0 14.0-18.0 g/dl HCT 43.0 42.0-52.0 % MCV 93.7 80.0-98.0 fL MCH 32.7 27.0-33.0 pg MCHC 34.9 31.0-36.0 g/dl RDW 12.9 11.0-16.0 % PLT 189 160-400 X10*3/uL MPV 10.6 9.4-12.4 fL Neut Pct Auto 72.7 45-73 % ImGran Pct Auto 0.2 0.0-0.4 % Lymp Pct Auto 17.1 L 20-40 % [place] Pct Auto 8.2 2-11 % Eos Pct Auto 1.0 0-4 % Baso Pct Auto 0.8 0-2 % NRBC Pct Auto 0.0 0.0-0.2 /100WBC ANC Neut Abs # 4.5 2.0-8.3 x10*3/uL ImGran Abs Auto 0.01 0.00-0.03 X10*3/uL Lymph Abs Auto 1.1 L 1.2-4.9 X10*3/uL [place] Abs Auto 0.5 0.1-1.2 X10*3/uL Eos Abs Auto 0.1 0.0-0.4 X10*3/uL Baso Abs Auto 0.1 0.0-0.2 X10*3/uL NRBC Abs Auto 0.000 0.0-0.012 X10*3/uL = Name: Arnoldo Mayfield Age/Sex: 59/M : 1965 Unit#: [id number] Attend Dr: Marcela Luz MD Re03/19/24 Status: DEP REF Location: [facility] Disch: SPEC : [id number] CRIS: 03/19/24 STATUS: COMP REQ : [id number] RECD: 03/19/24-[address]: Marcela Luz MD COMP: 03/19/24 ENTERED: 03/19/24 [facility] DR: ORDERED: Met Prof Fast, Uric, AST, ALT, Lipid Panel Test Result Flag Reference Sodium 138 135-145 mmol/L Potassium 4.0 3.3-5.1 mmol/L CL 107 96-108 mmol/L CO2 22 22-29 mmol/L Gap 13 12-20 BUN 17 H 9-16 mg/dL Creat 1.03 0.5-1.4 mg/dL EGFR > 60 NOTE: For -[place] individuals, multiply the result by 1.210. Chronic Kidney Disease: Estimated GFR < 60 mL/min/1.73m2 Severe Kidney Disease: Estimated GFR < 15 mL/min/1.73m2 FBS 106 H 60-99 mg/dL A fasting glucose from 100-125 mg/dl is considered impaired (pre-diabetes). Uric Acid 4.0 3.4-7.0 mg/dL CA 9.3 # 8.4-10.2 mg/dL AST (GOT) 29 5-37 U/L ALT (GPT) 25 0-40 U/L Triglyceride 182 H <150 mg/dL Desirable Triglyceride: less than 150 mg/dL Borderline High Triglyceride 150-199 mg/dL High Triglyceride: 200-499 mg/dL Very High Triglyceride: greater than or equal to 5OO mg/dL Cholesterol 183 <200 mg/dL Desirable Cholesterol: less than 200 mg/dL Borderline High Cholesterol: 200-239 mg/dL High Cholesterol: greater than 239 mg/dL LDL Calculated 105 H <100 mg/dL Desirable LDL: less than 100 mg/dL Near Optimal/Above Optimal LDL: 110-129 mg/dL Borderline High LDL: 130-159 mg/dL High LDL: 160-189 mg/dL Very High LDL: greater than or equal to 190 mg/dL HDL 42 >40 mg/dL Desirable HDL: greater than 40 mg/dL Note: This HDL assay may give artificially low results in patients with liver disease. Assessment and Plan Assessment & Plan (1) Gout: Comment: in right big toe Code(s): M10.9 - Gout, unspecified Qualifiers: Gout site: toe Gout etiology: unspecified cause Chronicity: unspecified Laterality: right Qualified Code(s): M10.9 - Gout, unspecified Plan: Has not had any attacks of gout since last visit, controlled on allopurinol 300 mg taken once a day (2) Hypertriglyceridemia: Code(s): E78.1 - Pure hyperglyceridemia Plan: Reviewed recent fasting lipid profile with patient with triglycerides higher than last check . Continue with fenofibrate 145 mg daily , in addition to adherence to low-cholesterol diet and regular exercise, at least 30 minutes 3 to 4 times a week. Advised patient to make healthy food choices, eat more fruits, vegetables, whole grains, wild caught fish and low-fat dairy. Limit amount of meat and fried or fatty food products, as well as processed foods and fast foods. Follow-up scheduled with repeat fasting lipid panel in 6 months. (3) Chronic heartburn: Code(s): R12 - Heartburn Plan: Continued on famotidine 40 mg once a day, and reminded again to avoid foods that will triggers heartburn, (4) Impaired fasting glucose: Code(s): R73.01 - Impaired fasting glucose Plan: Your fasting blood sugar is elevated above 100 mg/dL. Impaired glucose metabolism increases risk for developing diabetes mellitus type 2, as well as heart attack and stroke later on. Lifestyle changes at just weight loss, healthy eating habits, and regular exercise are important, and can prevent the progression to diabetes Orders: Orders Hemoglobin A1c 09/03/24 E78.1 - Pure hyperglyceridemia, M10.9 - Gout, unspecified, R12 - Heartburn, R73.01 - Impaired fasting glucose, Z12.5 - Encounter for screening for malignant neoplasm of prostate Aspartate Amino Transferase 09/03/24 E78.1 - Pure hyperglyceridemia, M10.9 - Gout, unspecified, R12 - Heartburn, R73.01 - Impaired fasting glucose, Z12.5 - Encounter for screening for malignant neoplasm of prostate Glucose Fasting 09/03/24 E78.1 - Pure hyperglyceridemia, M10.9 - Gout, unspecified, R12 - Heartburn, R73.01 - Impaired fasting glucose, Z12.5 - Encounter for screening for malignant neoplasm of prostate Alanine Aminotransferase 09/03/24 E78.1 - Pure hyperglyceridemia, M10.9 - Gout, unspecified, R12 - Heartburn, R73.01 - Impaired fasting glucose, Z12.5 - Encounter for screening for malignant neoplasm of prostate Lipid Panel 09/03/24 E78.1 - Pure hyperglyceridemia, M10.9 - Gout, unspecified, R12 - Heartburn, R73.01 - Impaired fasting glucose, Z12.5 - Encounter for screening for malignant neoplasm of prostate PSA,Total (Free>4and<10) 09/03/24 E78.1 - Pure hyperglyceridemia, M10.9 - Gout, unspecified, R12 - Heartburn, R73.01 - Impaired fasting glucose, Z12.5 - Encounter for screening for malignant neoplasm of prostate Uric Acid 09/03/24 E78.1 - Pure hyperglyceridemia, M10.9 - Gout, unspecified, R12 - Heartburn, R73.01 - Impaired fasting glucose, Z12.5 - Encounter for screening for malignant neoplasm of prostate Medications: New fenofibrate nanocrystallized 145 mg PO DAILY 90 tabs 3RF Refilled famotidine 40 mg PO DAILY 30 tabs 5RF Coding Level of Care Code Tele Est Pt Level 4 (00676) Diagnoses Gout involving toe of right foot, unspecified cause, unspecified chronicity M10.9 Gout site: toe Gout etiology: unspecified cause Chronicity: unspecified Laterality: right Hypertriglyceridemia E78.1 Chronic heartburn R12 Impaired fasting glucose R73.01 Additional Codes LUC-7 Assessment Billing - LUC-7 Assessment Tool: LUC-7 Assessment 46105 ([id number])
== END 2024-03-26 08:51 | disposition home or self-care (01) ==
LOC: HO.HMGC 07:05
PROVIDERS: PCP Internal Medicine; Visit Provider Internal Medicine
DX: M10.9 Gout, unspecified (principal); E78.1 Pure hyperglyceridemia; R12 Heartburn; R73.01 Impaired fasting glucose
CPT/HCPCS: 99442